=== PATIENT | male | born 1935 | race Caucasian/White ===

== ENCOUNTER 2017-01-10 16:12 | Outpatient (CLI) | payer MEDICARE, BC | END 2017-01-10 16:13 | disposition home or self-care (01) | LOC: LABBT 16:12 | PROVIDERS: ATTEND Specialist | DX: K40.90 Unilateral inguinal hernia, without obstruction or gangrene, not specified as recurrent (principal); Z85.038 Personal history of other malignant neoplasm of large intestine ==

== ENCOUNTER 2017-01-15 09:45 | Day surgery (SDC) | payer MEDICARE, BC ==
[2017-01-10 16:47] VITALS: BMI 26.0
[2017-01-15] MEDS ORDERED: CEFAZOLIN/Water 2 GM/20 ML SYRINGE ONE (10:35)
[2017-01-15] MEDS ORDERED: Ketorolac Tromethamine 30 MG/ML VIAL ONE (10:36)
[2017-01-15] MEDS ORDERED: Bupivacaine PF 0.5% 30 ML VIAL ONE (11:27)
[2017-01-15] MEDS ORDERED: Lidocaine 2% w/Epinephrine 1:200K 20 ML VIAL ONE (11:27)
[2017-01-15] MEDS ORDERED: Fentanyl 100 MCG/2 ML VIAL ONE (11:42)
[2017-01-15] MEDS ORDERED: ePHEDrine/0.9% NaCl/PF SYRINGE 50 mg/10 ml ONE (11:47)
[2017-01-15] MEDS ORDERED: Propofol 200 MG/20 ML VIAL ONE (11:47)
[2017-01-15] MEDS ORDERED: Lidocaine 2% PF 10 ML AMP (For Epidural Use) ONE (11:47)
--- NOTE | 2017-01-15 16:48 | EKG ---
Test Reason : PREOP Blood Pressure : / mmHG Vent. Rate : 052 BPM Atrial Rate : 052 BPM P-R Int : 172 ms QRS Dur : 098 ms QT Int : 428 ms P-R-T Axes : 047 -23 015 degrees QTc Int : 398 ms Sinus bradycardia Otherwise normal ECG When compared with ECG of 30-MAY-2011 10:21, No significant change was found Confirmed by DR. John GOODEN ([id number]) on 01/15/2017 4:48:31 PM Referred By: DOROTHY Confirmed By:DR. Jhon GOODEN
--- NOTE | 2017-01-16 08:27 | OP ---
DATE OF SURGERY: 01/15/2017 PREOPERATIVE DIAGNOSIS: Right inguinal hernia. POSTOPERATIVE DIAGNOSIS: Right inguinal hernia, indirect. OPERATION PERFORMED: Open right inguinal hernia repair with a large mesh patch and plug. SURGEON: Miguel Marie M.D. ANESTHESIA: General with laryngeal mask airway. INDICATIONS: The patient is an 81-year-old white male. He recently developed a bulge in his right groin typical of an inguinal hernia. He is taken to the operating room at this time for repair. DESCRIPTION OF OPERATION: Informed consent was obtained. The patient was taken to the operating ro om where general anesthesia was obtained with the patient in supine position. Right groin was shereen ed of hair, prepped with ChloraPrep, and draped in sterile fashion. Local anesthetic was infiltrate d using 0.25% Marcaine with epinephrine. The oblique right inguinal incision was created and dissec tion was carried through the skin and subcutaneous tissue. The fascia was identified and opened par allel to its fibers so as to open the external ring. Careful dissection was carried out in the ingu inal canal. The spermatic cord was dissected circumferentially and controlled with Jaqui drain. The direct space was examined and noted to be without evidence of a hernia defect. There was a subs tantial hernia sac noted along the medial aspect of the cord. This was carefully dissected free fro m the remaining cord structures. It was dissected back to its opening at the internal ring. This w as obviously an indirect hernia. A large mesh plug was obtained and the apex was secured to the ape x of the hernia sac and the complex was inverted into the preperitoneal space. The plug was secured to surrounding fascial structures using several interrupted sutures of 2-0 Vicryl. Mesh patch was obtained, trimmed to appropriate size, placed within the floor of the inguinal canal, and secured in place with several interrupted sutures of 2-0 Vicryl. The fascia was then closed with a running richey ture of 3-0 Vicryl. The additional local anesthetic was infiltrated in the wound. The remainder of the wound was closed in layers with 3-0 and 4-0 Monocryl suture. Dermabond was placed externally. There were no complications. The patient tolerated the procedure well and was taken to the recover y room in stable condition.
== END 2017-01-15 15:00 | disposition home or self-care (01) ==
LOC: SDC 09:45
PROVIDERS: ATTEND Specialist
PROC: 0YU50JZ Supplement Right Inguinal Region with Synthetic Substitute, Open Approach (ICD-10-PCS; principal; 2017-01-15)
DX: K40.90 Unilateral inguinal hernia, without obstruction or gangrene, not specified as recurrent (principal); Z90.49 Acquired absence of other specified parts of digestive tract
CPT/HCPCS: 49505; 93005; C1781; 93010; J0131; J1885; J2001; J2704; J3010; S0020